=== PATIENT | male | born 2005 ===

== ENCOUNTER 2023-10-16 18:28 | Outpatient (REF) | payer BC, SELFPAY ==
[2023-10-16 19:07] LABS: Abs Immature Grans 0.01 10^3/uL (0.0-0.06); Absolute Basophil Count 0.05 10^3/uL (0.0-0.2); Absolute Eosinophil Count 0.49 10^3/uL (0.0-0.7); Absolute Lymphocyte Count 1.99 10^3/uL (1.2-3.4); Absolute Monocyte Count 0.63 10^3/uL (0.1-0.8); Absolute Neutrophil Count 2.19 10^3/uL (1.2-6.7); Basophils % 0.9; Eosinophils % 9.1; HCT 45.9 % (40.0-50.0); HGB 15.8 g/dL (13.5-17.5); Immature Grans % 0.2; Lymphocytes % 37.1; MCH 31.5 pg (27.0-33.0); MCHC 34.4 % (32.0-36.0); MCV 92 fL (80-95); MPV 9.5 fL (8.0-11.0); Monocytes % 11.8; Neutrophils % 40.9; Platelet Count 295 10^3/uL (130-400); RBC 5.01 10^6/uL (4.36-5.78); RDW 12.4 % (11.8-14.1); WBC 5.36 10^3/uL (4.4-10.8)
[2023-10-16 19:40] LABS: Procalcitonin < 0.1 ng/mL
[2023-10-18 08:56] LABS: IgE 156 IU/mL (<158)
[2023-10-20 11:41] LABS: Fungitell Quantitative Value <31 pg/mL
[2023-10-20 11:43] LABS: Fungitell Qualitative Negative
== END 2023-10-16 18:29 | disposition home or self-care (01) ==
LOC: LBN 18:28
PROVIDERS: PCP Family Medicine; Visit Provider Physician Assistant Surgical
DX: R09.89 Other specified symptoms and signs involving the circulatory and respiratory systems
CPT/HCPCS: 84145; 87449; 82785; 85025

== ENCOUNTER 2023-10-17 03:01 | Outpatient (CLI) | payer BC, SELFPAY ==
[2023-10-17] MEDS: Levalbuterol HFA 15 GM INH 4 PUFF IH (17:30)
[2023-10-17] MEDS: Inhaler, Assist Device 1 EACH MC (17:31)
--- NOTE | 2023-10-19 12:39 | W.PFT ---
Date of service: 10/17/23 Time of Service: 15:18 Pulmonary Function Test Result Indications: Dyspnea Interpretation Spirometry: There is no airflow limitation. No bronchodilator response Lung Volumes: There is air trapping Diffusion Capacity: Normal diffusion Airway Pressure: Normal airways resistance Impression Normal pulmonary function with possible air trapping. Clinical Correlation therefore is recommended.
== END 2023-10-17 03:02 | disposition home or self-care (01) ==
LOC: RT 03:02
PROVIDERS: PCP Family Medicine; Visit Provider Physician Assistant Surgical
DX: J45.901 Unspecified asthma with (acute) exacerbation (principal)
CPT/HCPCS: 94060; 94726; 94729